=== PATIENT | female | born 1970 | race Caucasian/White ===

== ENCOUNTER 2019-10-23 18:07 | Emergency (ER) | payer BC ==
[2019-10-23] MEDS ORDERED: NS 0.9% 1000 ML** 1,000 ML IV ONE (18:44)
--- NOTE | 2019-10-23 18:45 | ED ---
Abdominal Pain/Female - HPI Summary HPI Summary: This pt is a 49 Y/O F presenting to [facility] with a CC of upper abdominal pain, localized to the R side, that has been intermittent since 10/18/2019. She states that the pain is rated a 7/10 in severity. She states that she eating anything causes the pain to hurt and is resolved by vomiting, She states that her stool and urination has been normal. She reports that she has had a decreased appetite and finally ate at 1330. If she does not vomit she states that she has pain for an hour and a half. The pain has begun radiating to her back today. She denies any fevers, chills, headaches, SOB, and CP. She states that belching alleviates her pain as well. She has no pertinent PMHx. She states that she has had no abdominal surgeries. She states that her LKMP was 2 weeks ago. - History of Current Complaint Chief Complaint: Cinthia Stated Complaint: UPPER ABD PAIN PER PT Time Seen by Provider: 10/23/19 18:14 Hx Obtained From: Patient ?: No Onset/Duration: Sudden Onset, Lasting Days - 5, Still Present Timing: Hours - 1.5 unless vomits Severity Initially: Moderate Severity Currently: Moderate Pain Intensity: 7 Pain Scale Used: 0-10 Numeric Location: Discrete At: RUQ Radiates: Yes Radiates to: Back - started today Aggravating Factor(s): Food Alleviating Factor(s): Vomiting Associated Signs and Symptoms: Positive: Negative - chills, headaches, sob, Back Pain, Nausea, Vomiting. Negative: Fever, Chest Pain, Urinary Symptoms, Diarrhea Allergies/Adverse Reactions: Allergies Allergy/AdvReac Type Severity Reaction Status Date / Time No Known Allergies Allergy Verified 10/23/19 18:11 PMH/Surg Hx/FS Hx/Imm Hx Previously Healthy: Yes Endocrine/Hematology History: Denies: Hx Diabetes Cardiovascular History: Denies: Hx Hypertension Respiratory History: Denies: Hx Asthma Infectious Disease History: No Infectious Disease History: Denies: Traveled Outside the [place] in Last 30 Days - Family History Known Family History: Positive: Diabetes, Other - colon CA - Social History Occupation: Employed Full-time Lives: With Family Alcohol Use: None Hx Substance Use: No Substance Use Type: Reports: None Hx Tobacco Use: No Smoking Status (MU): Never Smoked Tobacco Review of Systems Negative: Fever, Chills Negative: Chest Pain Negative: Shortness Of Breath Positive: Abdominal Pain - RUQ, Vomiting, Nausea. Negative: Diarrhea Genitourinary: Negative Negative: Headache All Other Systems Reviewed And Are Negative: Yes Physical Exam - Summary Physical Exam Summary: Constitutional: Well-developed, Well-nourished, Alert. (-) Distressed Skin: Warm, Dry HENT: Normocephalic; Atraumatic Eyes: Conjunctiva normal Neck: Musculoskeletal ROM normal neck. (-) JVD, (-) Stridor, (-) Tracheal deviation Cardio: Rhythm regular, rate normal, Heart sounds normal; Intact distal pulses; Radial pulses are 2+ and symmetric. (-) Murmur Pulmonary/Chest wall: Effort normal. (-) Respiratory distress, (-) Wheezes, (-) Rales Abd: Soft, Mild RUQ tenderness, negative murphys sign, (-) Distension, (-) Guarding, (-) Rebound Musculoskeletal: (-) Edema Lymph: (-) Cervical adenopathy Neuro: Alert, Oriented x3 Psych: Mood and affect Normal Triage Information Reviewed: Yes Vital Signs On Initial Exam: Initial Vitals Temp Pulse Resp BP Pulse Ox 98.1 F 79 16 143/92 99 10/23/19 18:08 10/23/19 18:08 10/23/19 18:08 10/23/19 18:08 10/23/19 18:08 Vital Signs Reviewed: Yes Procedures - Sedation Patient Received Moderate/Deep Sedation with Procedure: No Diagnostics - Vital Signs Vital Signs Temp Pulse Resp BP Pulse Ox 10/23/19 18:08 98.1 F 79 16 143/92 99 - Laboratory Result Diagrams: 10/23/19 18:51 10/23/19 18:51 Lab Statement: Any lab studies that have been ordered have been reviewed, and results considered in the medical decision making process. - Ultrasound Gallstone US Ultrasound Interpretation Completed By: Radiologist Summary of Ultrasound Findings: Gallstones. Dilated CBD with an obstructing stone identified distally. There is intrahepatic ductal dilatation as well. ED physician has reviewed this report. Re-Evaluation - Re-Evaluation First Eval Re-Evaluation Time: 20:27 Change: Unchanged Comment: Pt was informed of transfer and is agreeable. Abdominal Pain Fem Course/Dx - Course Course Of Treatment: Patient is here with right upper quadrant tenderness over the past week. Patient's had no fever. Patient does have right upper quadrant tenderness on exam. Patient had blood work performed which showed no leukocytosis. Patient has elevated LFTs, T bili, alkaline phosphatase. Patient has a normal lipase. Patient had an ultrasound performed which showed choledocholithiasis with a dilated CBD and intrahepatic biliary duct dilatation. Patient has no evidence of cholecystitis. Patient is given Zosyn empirically. GI was called and the recommended ERCP which cannot be done here. Patient is transferred to [facility]. - Diagnoses Provider Diagnoses: Choledocholithiasis - Provider Notifications Discussed Care Of Patient With: Malou Strickland Time Discussed With Above Provider: 20:28 Instructed by Provider To: Transfer Admit/Transition Orders Completed By ED Provider: Yes Discharge ED - Sign-Out/Discharge Documenting (check all that apply): Patient Departure - transfer [facility] - Discharge Plan Condition: Stable Disposition: TRANS HIGHER LVL OF CARE FAC Referrals: Maira Kuhn NP [Primary Care Provider] - - Billing Disposition and Condition Condition: STABLE Disposition: Trans Higher Lvl of Care Fac - Attestation Statements Document Initiated by Scribe: Yes Documenting Scribe: Raji Donato Provider For Whom Scribe is Documenting (Include Credential): Wai Diop MD Scribe Attestation: Raji Rodrigez, petered for Wai Diop MD on 10/23/19 at 2052. Scribe Documentation Reviewed: Yes Provider Attestation: The documentation as recorded by the Raji villalta accurately reflects the service I personally performed and the decisions made by Wai mello MD Status of Scribe Document: Viewed Consult Consult: CARMEL Govea, was consulted at 2000 recommends transferring the pt for an ERCP. CARMEL Murcia, accepts the pt to the floor of [facility] to preform the ERCP at 2023.
[2019-10-23 19:03] LABS: ABS Eosinophils 0.1 10^3/ul (0-0.6); ABS Lymphocytes 1.4 10^3/ul (1.0-4.8); ABS Monocytes 0.4 10^3/ul (0-0.8); ABS Neutrophils 2.8 10^3/ul (1.5-7.7); Eosinophil % 1.5 %; Hematocrit 38 % (35-47); Hemoglobin 13.3 g/dL (12.0-16.0); Lymphocyte % 29.9 %; Mean Corpuscular HGB Conc 35 g/dL (31-36); Mean Corpuscular Hemoglobin 30 pg (27-31); Mean Corpuscular Volume 86 fL (80-97); Mean Platelet Volume 8.2 fL (7.4-10.4); Platelet Count 348 10^3/uL (150-450); Red Blood Count 4.44 10^6 /uL (3.70-4.87); Red Cell Distribution Width 14 % (10-15); White Blood Count 4.8 10^3/uL (3.5-10.8)
[2019-10-23] MEDS ORDERED: Ketorolac INJ* 30 MG/ML 1 ML VIAL IV ONE (19:04)
[2019-10-23 19:19] LABS: ALT 372 U/L (7-52); AST 250 U/L (13-39); Albumin/Globulin Ratio 1.4 (1-3); Alkaline Phosphatase 277 U/L (34-104); Anion Gap 7 mmol/L (2-11); BUN/Creatinine Ratio 11.7 (8-20); Blood Urea Nitrogen 9 mg/dL (6-24); CO2 Carbon Dioxide 29 mmol/L (22-32); Calcium 8.9 mg/dL (8.6-10.3); Chloride 101 mmol/L (101-111); EGFR African American 96.4 (>60); EGFR Non-African American 79.7 (>60); Globulin 2.8 g/dL (2-4); Glucose 102 mg/dL (70-100); Potassium 3.6 mmol/L (3.5-5.0); Sodium 137 mmol/L (135-145); Total Protein 6.8 g/dL (6.4-8.9)
[2019-10-23 19:26] LABS: HCG Pregnancy < 0.60 mIU/mL
[2019-10-23] MEDS ORDERED: Piperacillin/Tazobac ADVAN(*) 3.375 GM in NS 0.9% 100 ML* 100 ML IVPB ONE (20:01)
[2019-10-23 20:16] VITALS: BP 128/75
== END 2019-10-23 21:47 | disposition short-term general hospital (02) ==
LOC: ED 18:07
DX: K80.50 Calculus of bile duct without cholangitis or cholecystitis without obstruction (principal); R10.11 Right upper quadrant pain; R11.2 Nausea with vomiting, unspecified
CPT/HCPCS: 36415; 76705; 80053; 83690; 84702; 85025; 96361; 96365; 96375; 99283; J1885; J2543

== ENCOUNTER 2019-11-22 10:51 | Inpatient (IN) | payer BC ==
--- NOTE | 2019-11-22 10:58 | ED ---
Abdominal Pain/Female - HPI Summary HPI Summary: 49 y/o F with hx gallstones presenting to [facility] c/o 05/13 epigastric and RUQ pain radiating into mid back. Was seen here 1 month ago, transferred to [facility], had 3 gallstones removed and ERCP done, did not have cholecystectomy done due to COVID19 pandemic, was d/c on 10/25. Patient has since had 5 flareups. She reports 3 flareups this past week. They start in the evening, usually mild 10/11. They worsen into the morning. Today her pain started at 0100 and has worsened since 0600. Patient reports nausea/vomiting and intermittent diarrhea for one week. She denies fever. Symptoms aggravated by nothing. Symptoms alleviated by nothing. Medications reviewed. - History of Current Complaint Chief Complaint: EDAbdPain Stated Complaint: GALLBLADDER ISSUE PER PT Time Seen by Provider: 11/22/19 10:57 Hx Obtained From: Patient Onset/Duration: Lasting Weeks - 1, Still Present Timing: Intermittent Episode Lasting Severity Currently: Severe Pain Intensity: 10 Pain Scale Used: 0-10 Numeric Location: Discrete At: RUQ, Epigastric Radiates: Yes Radiates to: Back - mid Aggravating Factor(s): Nothing Alleviating Factor(s): Nothing Associated Signs and Symptoms: Positive: Negative - fever, Nausea, Vomiting, Diarrhea Allergies/Adverse Reactions: Allergies Allergy/AdvReac Type Severity Reaction Status Date / Time No Known Allergies Allergy Verified 11/22/19 10:52 Home Medications: Home Medications Multivitamins/Minerals TAB* [Theragran/minerals TAB*] 1 tab PO DAILY 11/22/19 [ History Confirmed 11/22/19] Zinc 50 mg PO DAILY 11/22/19 [History Confirmed 11/22/19] PMH/Surg Hx/FS Hx/Imm Hx Endocrine/Hematology History: Denies: Hx Diabetes Cardiovascular History: Denies: Hx Hypertension Respiratory History: Denies: Hx Asthma GI History: Reports: Other GI Disorders - gallstones Infectious Disease History: No Infectious Disease History: Denies: Traveled Outside the [place] in Last 30 Days - Family History Known Family History: Positive: Diabetes, Other - colon CA - Social History Alcohol Use: None Hx Substance Use: No Substance Use Type: Reports: None Hx Tobacco Use: No Smoking Status (MU): Never Smoked Tobacco Review of Systems Negative: Fever Positive: Abdominal Pain, Vomiting, Diarrhea, Nausea All Other Systems Reviewed And Are Negative: Yes Physical Exam - Summary Physical Exam Summary: Constitutional: Well-developed, Well-nourished, Alert. (-) Distressed Skin: Warm, Dry HENT: Normocephalic; Atraumatic Eyes: Conjunctiva normal Neck: Musculoskeletal ROM normal neck. (-) JVD, (-) Stridor, (-) Nuchal rigidity Cardio: Rhythm regular, rate normal, Heart sounds normal; Intact distal pulses; Radial pulses are 2+ and symmetric. (-) Murmur Pulmonary/Chest wall: Effort normal. (-) Respiratory distress, (-) Wheezes, (-) Rales Abd: Soft, epigastric and RUQ tenderness, (-) Distension, (-) Guarding, (-) Rebound Musculoskeletal: (-) Edema Lymph: (-) Cervical adenopathy Neuro: Alert, Oriented x3 Psych: Mood and affect Normal Triage Information Reviewed: Yes Vital Signs On Initial Exam: Initial Vitals Temp Pulse Resp BP Pulse Ox 98.1 F 90 18 146/96 98 11/22/19 10:52 11/22/19 10:52 11/22/19 10:52 11/22/19 10:52 11/22/19 10:52 Vital Signs Reviewed: Yes Procedures - Sedation Patient Received Moderate/Deep Sedation with Procedure: No Diagnostics - Vital Signs Vital Signs Temp Pulse Resp BP Pulse Ox 11/22/19 10:52 98.1 F 90 18 146/96 98 - Laboratory Result Diagrams: 11/22/19 10:57 11/22/19 10:57 Lab Statement: Any lab studies that have been ordered have been reviewed, and results considered in the medical decision making process. - Ultrasound Abdomen Ultrasound Interpretation Completed By: Radiologist - IMPRESSION: 1. BILIARY DILATATION WITH A 0.7 CM DISTAL COMMON DUCT STONE. 2. CHOLELITHIASIS. ED physician has reviewed this imaging report. Re-Evaluation - Re-Evaluation First Eval Re-Evaluation Time: 13:02 - Transfer initiated Second Eval Re-Evaluation Time: 13:07 - Patient declines transfer Abdominal Pain Fem Course/Dx - Course Course Of Treatment: 49 y/o F w hx gallstones s/p ERCP p/w R sided abd pain. - check labs, RUQ US, pain control toradol. - labs w elevated LFTS, alk phos and tbili. US w 0.7 cm stone CBD, d/w GI who initially requested transfer however patient requesting to stay at [facility]. - Dr. Palma will see patient this afternoon - Diagnoses Provider Diagnoses: Common bile duct stone - Provider Notifications Discussed Care Of Patient With: Conner Palma - Recommends transfer given that patient had recent ERCP at [place]. 1308 Dr. Palma agrees to consult. 1316 Dr. Luevano accepts patient. Time Discussed With Above Provider: 12:58 - Critical Care Time Critical Care Statement: Critical care time is provided exclusive of any time spent performing procedures. Discharge ED - Sign-Out/Discharge Documenting (check all that apply): Patient Departure - Discharge Plan Condition: Stable Disposition: ADMITTED TO [facility] Referrals: Maira Kuhn NP [Primary Care Provider] - - Billing Disposition and Condition Condition: STABLE Disposition: Admitted to [facility] - Attestation Statements Document Initiated by Scribe: Yes Documenting Scribe: Jackeline Wagoner Provider For Whom Nick is Documenting (Include Credential): Romana Gonzalez MD Scribe Attestation: Jackeline Rodrigez, scribed for Romana Gonzalez MD on 11/22/19 at 1324. Scribe Documentation Reviewed: Yes Provider Attestation: The documentation as recorded by the Jackeline villalta accurately reflects the service I personally performed and the decisions made by Romana mello MD Status of Scribe Document: Viewed
--- OUTSIDE RECORDS SUMMARY | 2019-11-22 11:00 | XMS REPORT | Continuity of Care Document ---
:1970 Author Organization 0001 - [facility] Address [address] [place] [address] Phone Care Team Providers Name Role Phone NICKIE LI NP Unavailable Unavailable Allergies, Adverse Reactions, Alerts Substance Reaction Status No Known Allergies Active Medications Medication Instructions Dosage Effective Dates Status Comments (start - stop) Suprep Bowel Prep Kit take as directed for - Active 17.5 gram-3.13 colonoscopy gram-1.6 gram oral solution Problems Condition Effective Dates (start - stop) Clinical Status Encntr for pneumatic drum sander exam (general) (routine) w/o abn findings Encounter for screening mammogram for breast cancer Encounter for general adult medical examination without abnormal findings Encounter for screening for malignant neoplasm of colon Family history of colon cancer History of basal cell carcinoma Ceballos hemangioma Acrochordon Hemangioma of skin and subcutaneous - tissue Flank pain Mid back pain on right side Pain in thoracic spine - Basal cell carcinoma of skin of scalp - and neck Melanocytic nevi of left lower eyelid, - including canthus Encntr for general adult medical exam w/o abnormal findings Encounter for immunization History of hyperlipidemia Encntr for pneumatic drum sander exam (general) (routine) w/o abn findings Neoplasm of skin Facial scar Personal history of other malignant - neoplasm of skin Encounter for screening for other - disorder Neoplasm of skin History of basal cell carcinoma Disturbance of skin sensation Rash Tick bite of neck, initial encounter ^ Bitten or stung by nonvenomous insect and other nonvenomous arthropods, initial encounter Chronic intractable headache, unspecified headache type Hyperlipidemia, unspecified hyperlipidemia type Encntr for general adult medical exam w/o abnormal findings Chronic intractable headache, unspecified headache type Encounter for screening mammogram for breast cancer Body mass index (BMI) 36.0-36.9, adult - Flank pain Flu-like symptoms Encntr for general adult medical exam w/o abnormal findings Encounter for screening mammogram for breast cancer Myalgia BMI 36.0-36.9,adult Myalgia Basal cell carcinoma of skin of face Encounter for removal of sutures - Basal cell carcinoma of skin of other - parts of face Basal cell carcinoma of skin of face Basal cell carcinoma of skin of other - parts of face Neoplasm of skin Acrochordon Ceballos hemangioma Seborrheic keratosis Disturbance of skin sensation Skin neoplasm Other disturbances of skin sensation - Vertigo, benign paroxysmal, unspecified laterality Abnormal mammogram Inconclusive mammogram Hypercholesteremia Encntr for general adult medical exam w/o abnormal findings Other screening mammogram Skin lesion Wrist injury Pain in joint, forearm - Acdnt fall, same lvl, slip/trip/stumble - NOS Place of occurrence NEC - Examination, routine medical Screening mammogram NEC Pain in shoulder Screening exam for viral diseases Family history of cancer of gastrointestinal tract Influenza Vaccine - Vaccine against DTP - Mole Flank pain Abdominal Pain - Sciatica Abdominal Pain - Sciatica - Screening mammogram NEC Pending workup Procedures Procedure Date Procedure Unknown Results Test Name Date and Time Measure Units Reference Range Abnormal Flag Status Comments Unknown Encounters Encounter Practice Location Reason(s) Diagnoses Date Provider Providers Description For Visit Copied on Encounter 0001 - [facility] Primary [email or web address] 5 NICKIE. Jose [address] [place], [place], [address], [address]. Ryan tel:[phone] [place], [address], tel:[phone] 2019 - [employer] Primary Encntr for pneumatic drum sander meebee Fellows exam (general) 1-201 NICKIE. 54 33-57 (routine) w/o 9 [facility] abn [place], [place], Street, findingsEncount [address]. Ryan er for tel:[phone] [place], screening [phone], [place] mammogram for tel:[phone] breast [phone] cancerEncounter for general adult medical examination without abnormal findingsEncount er for screening for malignant neoplasm of colonFamily history of colon cancer 0001 - [facility] History of [employer]FONSO [employer] [employer], Dermatology basal cell 0-201 RACHEAL. 200 33-57 carcinomaCherry [address] [place] hemangiomaAcroc [place], [place], hordonHemangiom [address], Ryan a of skin and [place], [place], [place], subcutaneous [address]. [address], [place] tissue tel:+ tel:+ [phone] 0001 - S Primary Flank pain Feb- EMILY [facility] [employer], Care Fellows 9-201 [place]. 33-57 9 [address] [place], [place], Street, [address]. Ryan tel:[phone] [place], [phone], [place] tel:+ [phone] 0001 - S Primary Mid back pain Feb- EMILY [facility] [employer], Care Fellows on right 8- [place]. 33-57 sidePain in 9 54 [facility] thoracic spine [place], [place], Street, [address]. Ryan tel:[phone] [place], [address], [place] tel:+ [phone] 0001 - S Plastic Basal cell Jun- FEDCZUK [employer] [employer], Surgery carcinoma of 0-201 ANDREWS 33-57 skin of scalp 8 PETER. [facility] and 27 [facility], neckMelanocytic [place], [address]. [place], lower eyelid, tel:[phone], [place] including [address] tel:[phone] canthus [phone] 0001 - S Primary Encntr for Jun- RISING [employer] [employer], Care Fellows general adult 9- NICKIE. 54 33-57 medical exam 8 [facility] w/o abnormal [place], [place], Street, findingsEncount [address]. Ryan er for tel:[phone] [place], [place], immunizationHis [phone], [place] tory of tel:[phone] hyperlipidemiaE [phone] ncntr for pneumatic drum sander exam (general) (routine) w/o abn findings 0001 - [facility] Plastic [facility]- [facility], Surgery skinFacial ANDREWS 33-57 scarPersonal 8 PETER. [facility] history of [facility], other malignant [place], [address]. [place], skin tel:[phone], [place] [address] tel:[phone] 0001 - Lab Drop - Encounter for Sep-0 [facility], [facility] screening for RACHEAL. 200 33-57 other disorder 8 [facility], [place], [address], [place], [address]. [address], [place] tel:[phone] tel:[phone] 0001 - [facility] Neoplasm of Sep-0 [facility], Dermatology skinHistory of RACHEAL. 200 33-57 basal cell [address] [place] carcinomaDistur [place], [place], bance of skin [address], [place], [address]. [address], [place] tel:[phone] tel:[phone] 0001 - [facility] Walk-In RashTick bite Apr- [facility], Center of neck, 201 EDDI. 4417 33-57 Hilary initial 8 Hilary [place] encounter [facility], ^Bitten or Ryan Matias stung [place], nonvenomous [address]. [address], [place] insect and tel:[phone] tel:[phone] other [phone] nonvenomous arthropods, initial encounter 0001 - [facility] Primary Chronic Feb- [facility]ISING S Inc, Care Fellows intractable 9201 NICKIE. 54 33-57 headache, [address] , [place] unspecified [place], [place], headache [address]. Ryan typeHyperlipide tel:[phone] [place], [place], [address], [place] unspecified tel: hyperlipidemia [phone] type 0001 - [facility] Primary Encntr for [facility], Care Fellows general adult 1- NICKIE. 54 33-57 medical exam 8 [facility] w/o abnormal [place], [place], Street, findingsChronic [address]. [facility] tel:[phone] [place], headache, [address], [place] unspecified tel:[phone] headache [phone] typeEncounter for screening mammogram for breast cancerBody mass index (BMI) 36.0-36.9, adult 0001 - [facility] Primary Flank ELIAN [facility], Care Fellows painFlu-like 0 PABLO. 260 33-57 symptoms 7 Irwin Alexx [facility], [place], [place], Ryan [address]. [place], tel:[phone], [place] [address] tel: [phone] 0001 - [facility] Primary Encntr for ELIAN [facility], Care Fellows general adult PABLO. 260 33-57 medical exam 7 Irwin Alexx w/o abnormal Ryan Dodson [place], [place], [place] [address]. [place], screening tel:[phone], [place] [address] tel:60 breast [phone] cancerMyalgiaBM I 36.0-36.9,adult 0001 - [facility] Primary Myalgia ELIAN [facility], Care Fellows PABLO. 260 33-[address] [place], [place], Ryan [address]. [place], tel:[phone], [place] [address] tel:[phone] 0001 - [facility] Basal cell Fili- PAULA S Inc, Dermatology carcinoma of GENADIJ. 200 33-57 skin of [address] [place] [facility], for removal of [address], [place] [facility] [place], [place], [place], cell carcinoma [address]. [address], [place] of skin of tel:[phone] tel:+ other parts of [phone] face 0001 - [facility] Basal cell Fili-0 [employer], Dermatology carcinoma of 2-201 GENADIJ. 200 33-57 skin of [address] [place] faceBasal cell [place], [place], carcinoma of [address], Ryan skin of other [place], [place], [place], [place], parts of face [address]. [address], [place] tel:+ tel: [phone] 0001 - [facility] Neoplasm of May-2 [employer], Dermatology skin 6-201 GENADIJ. 200 33-[address] [facility], [place], [address], [place], [place], [place], [address]. [address], [place] tel:[phone] tel: [phone] 0001 - [facility] AcrochordonCher Mar-0 [employer], Dermatology ry 4-201 RACHEAL. 200 33-57 hemangiomaSebor [address] [place] rheic [place], Street, keratosisDistur [address], Ryan bance of skin [place], [place], [place], [place], sensationSkin [address]. [address], [place] neoplasmOther tel:+ tel:[phone] disturbances [place] [phone] skin sensation 0001 - [facility] Primary Vertigo, benign Silverio-2 CALLEO [facility], Care Fellows paroxysmal, 5-201 ISABELLA. [address] 33[address], [place], [place], Street, [address]. Ryan tel:[phone] [place], [address], [place] tel:+ [phone] 0001 - [facility] Primary Abnormal Dec-0 [facility], Care Fellows mammogram 3-201 ISABELLA. 116 N 33-57 [address], [place], [place], Street, [address]. Ryan tel:+[phone] [place], [address], [place] tel:[phone] 0001 - [facility] Primary Inconclusive Dec-0 [facility], Care Fellows mammogram 2-201 ISABELLA. [address] 33[address], [place], [place], Street, [address]. Ryan tel:[phone] [place], [address], [place] tel:+ [phone] 0001 - [facility] Primary Hypercholestere Nov-2 CALLEO S Inc, Care Fellows lenka 3- ISABELLA. 116 [address] 33[address], [place], [place], Street, [address]. Ryan tel:[phone] [place], [address], [place] tel: [phone] 0001 - [facility] Primary Encntr for Nov-2 CALLEO S Inc, Care Fellows general adult 0-201 ISABELLA. 116 [address] 33-[address], [place] w/o abnormal [place], [place], Street, findingsOther [address]. Ryan screening tel:[phone] [place], mammogramSkin [address], [place] lesion tel: [phone] 0001 - [facility] Walk-In Wrist Apr- LAYLA GARDNER. [facility], Center injuryPain in 4433 [place] 3[address] [place] joint, 5 [facility] forearmAcdnt [facility], [place], fall, same lvl, Rheumatology Ryan slip/trip/stumb , [place], [place], [place], [address]. [address], [place] occurrence NEC tel:+4 tel: [phone] 0001 - [facility] Primary Examination, SCHECTER S Inc, Care Fellows routine JADA. 33-57 medicalScreenin 4 4417 [facility] g mammogram [address] [facility], NECPain in [place], [place], Ryan shoulderScreeni [address]. [place], ng exam for tel:[phone], [place] viral [address] tel:[phone] diseasesFamily [phone] history of cancer of gastrointestina l tractInfluenza VaccineVaccine against DTPMole 0001 - [facility] Primary Silverio- MARTIN S Inc, Care Fellows JESSENIA. 54 33-57 [address] , [facility], Street, [place], [place], Ryan [address]. [place], tel:[phone], [place] [address] tel:[phone] 0001 - [facility] Primary Flank Mar-2 ALICIA S Inc, Care Fellows painAbdominal 3-201 KASEY. 54 33-57 PainSciaticaAbd 2 [place], [place], Street, [facility] HospitalSciatica [address]. Ryan tel:[phone] [place], [address], tel:[phone] 0001 - [facility] Primary Screening Aug-2 SALAZAR S Inc, Care Fellows mammogram NEC 2-200 JESSENIA. 54 33-57 6 [facility], Street, [place], [place], Ryan [address]. [place], tel:[phone], [address] tel:[phone] Family History Family Member Diagnosis Age At Onset Paternal aunt Diabetes mellitus Maternal grandmother Cancer, colon Maternal aunt Cancer, colon Paternal uncle Diabetes mellitus Family history of Cancer, unknown Immunizations Vaccine Date Status Comments Influenza, injectable, administered Source: New Immunization quadrivalent, preservative Record free, split virus Influenza, injectable, administered Source: New Immunization quadrivalent, preservative Record free, split virus Influenza, injectable, administered Source: New Immunization quadrivalent, preservative Record free, split virus 4618-4507 Influenza, injectable, split administered Source: New Immunization virus, preservative free, 3 Record years and older Afluria 2742-4366 Tdap administered Source: Source Unspecified Fluarix Quadrivalent Syringe administered Source: Source Unspecified flu (split) (3 yrs or older) administered Note: Abstracted:08/24 ; Source: New Immunization Record Payers Payer name Insurance type Covered constitution party ID Authorization(s) Rubén [id number] [facility] [id number] [facility] [id number] [place] He [id number] [facility] [id number] Count includes the [facility] [id number] Social History Type Description Quantity Date Captured Comments Alcohol Use Details Unknown Caffeine Use Details Unknown Tobacco Use Status Unknown Smoking Status Unknown Vital Signs Date / Height Weight BMI Pulse Blood Temperature Respiratory Body Head BMI Time: Rate Pressure Rate Surface Circumference percentile Area Unknown Chief Complaint And Reason For Visit No information Reason For Referral Reason For Referral Unknown Plan Of Care Date Type Action Status Referral Referred To: ordered ASA ROB MD [address] [place], [address] [phone] Ordered: Referrals: Gastroenterology. ASA ROB MD. Evaluate and treat Appointment date/timeframe: 08/02/2019 Referral Ordered: ordered U/S Retroperitoneal limited (Must state single Kidney or Aorta) Right kidney Appointment date/timeframe: 02/19/2019 Referral Ordered: ordered Plastic Surgery (related to Neoplasm of skin) Referral Ordered: ordered Referrals: Plastic Surgery. Evaluate and treat Referral Ordered: ordered DEEPALI PENA DC -Chiropractic Medicine (related to Chronic intractable headache, unspecified headache type) Referral Referred To: ordered DEEPALI PENA DC [address] [place], [address] [phone] Ordered: Referrals: Chiropractic Medicine. DEEPALI PENA DC. Evaluate and treat Appointment date/timeframe: 4 Weeks Referral Ordered: ordered MRI of brain w/o Contrast Appointment date/timeframe: 09/09/2017 Referral Ordered: ordered Spot Compression Mammogram Referral Ordered: ordered Referrals: Dermatology Referral Ordered: ordered Xray Wrist complete (Must choose side) Right Appointment date/timeframe: STAT Referral Referred To: ordered ASA ROB [address] [place], [address] [phone] Ordered: ASA ROB. Gastroenterology. Consult and treat. Referral Ordered: ordered . Dermatology. Consult and treat. Referral Ordered: ordered Mammogram, Screening, Bilateral, 2 Views Each Referral Ordered: ordered . Physical Therapy. Evaluate patient, develop plan and implement plan. Date Type Problem Goal Intervention Status Start Date Unknown History Of Present Illness Encounter Date Complaint History Of Present Illness No information Functional Status Encounter Date Functional Assessment Cognitive Assessment Unknown Medications Administered Medication Instructions Dosage Effective Dates (start - stop) Status Comments Drug Treatment Unknown Instructions Date Instruction Additional Information Pap done today, this office will Related to Encntr for pneumatic drum sander exam call with results (general) (routine) w/o abn findings Mammogram ordered Related to Encounter for screening mammogram for breast cancer Referral to GI Related to Encounter for screening for malignant neoplasm of colon Maintain normal body weight. Related to Encounter for general Consume a diet rich in fruits, adult medical examination without vegetables, and low-fat dairy abnormal findings products with a reduced content of saturated and total fat. Consume no more than 2400mg of sodium/day. Engage in regular aerobic physical activity such as brisk walking (at least 30 minutes per day, most days a week). Return in 6 months for full skin Related to History of basal cell exam. Please call sooner with new carcinoma or changing lesions. SUNSCREENS:-Use sunscreen products that block UVB and UVA. Products should be applied generously 15-30 minutes before sun exposure. -Face: You may prefer a product that is light and nongreasy. Examples for face: Neutrogena Ultra-Sheer 30, 55, 85, 100, or Neutrogena Sensitive Skin 60,Neutrogena Sheer Zinc 50, Blue Lizard Face 30, depending on expected exposure. -Use SPF 30-70 on the body and choose one for your expected activity and skin type, less expensive. Ex: NoAd 60 ([employer])-Avoid fragrances and natural plant ingredients, as these may cause a rash.-The safest products for general use and for babies contain ZINC OXIDE and/or TITANIUM DIOXIDE as the ONLY active ingredients. Examples: Banana Boat Kids or Banana Boat Baby SPF 50 (8 oz for about $7) , Neutrogena Pure & Free Baby Faces 60 or Sheer Zinc 50, Blue Lizard Sensitive or Baby, Neutrogena Sensitive Skin 60, Vanicream.-If using insect repellent, put sunscreen on first, rub in, then apply repellent over it. SKIN TAGS (Acrochordons): Soft, Related to Acrochordon fleshy bumps. They tend to occur mostly on neck, eyelids, armpits, and thighs. They may run in families. They can be removed if they become painful or irritated. CEBALLOS HEMANGIOMA: These are bright Related to Ceballos hemangioma red to purplish bumps made up of small blood vessels, occurring most frequently on the torso. They increase in number with age and are totally harmless, although occasionally very numerous. Rest when you can.Ice or heat Related to Mid back pain on right 15-20min per hour as side tolerated.Tylenol or Ibuprofen as needed for pain. Patient will be contacted by office for testing results. Patient will be contacted by office Related to Encntr for general adult for testing results. Maintain medical exam w/o abnormal findings healthy diet of fruits, vegetables, proteins, and healthy grains. Monitor portion sizes. Exercise for at least 30 min per day for 5 days a week, such as walking, biking, or swimming. Maintain adequate hydration. Call office with any questions/concerns. Patient will be contacted by office Related to Encntr for pneumatic drum sander exam for testing results. (general) (routine) w/o abn findings You will be scheduled to have an Related to Neoplasm of skin office surgery procedure Return in 5-6 months for skin Related to Neoplasm of skin exam.Referral to plastic surgery. POST-OP INSTRUCTIONS: Leave the original dressing on and keep it dry for 24 hours. Wash your hands thoroughly before changing your dressing. Remove the bandage and wipe off any old ointment and blood using a gauze or cotton ball with water. You may wash the surgical site gently with water (no soap). Before showering remove the bandage and apply a thick layer of petroleum jelly or Aquaphor over the site to protect it. Afterwards, wipe off the excess and using a Q-tip reapply a thin layer and follow with a fresh dressing. Use petrolatum from a tube, not a jar. Change the dressing every 24 hrs. Avoid actions which may stretch, pull, or otherwise traumatize the operative site. If you have over 1/4" of redness around the site, drainage, bleeding, etc. please call the office. On evenings and weekends please go to a S walk-in ([place] [phone], [place] [phone], [place] [phone], or [facility] ER. SUNSCREENS:-Use sunscreen products Related to History of basal cell that block UVB and UVA. Products carcinoma should be applied generously 15-30 minutes before sun exposure. -Face: You may prefer a product that is light and nongreasy. Examples for face: Neutrogena Ultra-Sheer 30, 55, or Neutrogena Sensitive Skin 60, Blue Lizard Face 30, depending on expected exposure. -Use SPF 30-70 on the body and choose one for your expected activity and skin type, less expensive.-Avoid fragrances and natural plant ingredients, as these may cause a rash.-The safest products for general use and for babies contain ZINC OXIDE and/or TITANIUM DIOXIDE as the ONLY active ingredients. Examples: Banana Boat Kids or Banana Boat Baby SPF 50 (8 oz for about $7) , Neutrogena Pure & Free Baby Faces 60, Blue Lizard Sensitive or Baby, Neutrogena Sensitive Skin 60, Vanicream. Pt declined pt plan, discussed the Related to Rash following: Tick bite, CDC recommends post exposure prophylaxis of tick bite with Doxycycline if tick has been attached more than 36 hours. Pt requests antibiotic, Take antibiotic dose as prescribed with large glass of water. Discussed s/s of lyme disease, (large red rash that develops into bullseye appearance with central clearing, high fever, joint aches) follow up with primary care provider if these develop or any questions or concerns. Reviewed lab work. Increase Related to Hyperlipidemia, exercise as tolerated at least 40 unspecified hyperlipidemia type min a day, 3-4 days a week. Recommend diet that emphasizes intake of fruits, vegetables and whole grains; includes low fat dairy, poultry, fish, legumes, nontropical vegetable oils and nuts; and limits intake of sweets, sugar sweetened beverages and red meats. Reduce saturated fats. Reviewed MRI, Will refer to Related to Chronic intractable Chiropractor for treatment of headache, unspecified headache type chronic headaches. Complete mammogram Related to Encounter for screening mammogram for breast cancer Complete MRI of head. Related to Chronic intractable headache, unspecified headache type start tamiflu today, increase rest Related to Flu-like symptoms and fluid intake. Tylenol or motrin as needed for fever/discomfort. Urine testing done in office today Related to Flank pain was normal. normal exam Related to Encntr for general adult medical exam w/o abnormal findings There is no formal lab testing Related to Myalgia approved to diagnose non respiratory mold exposure symptoms and mold exposure is unlikely to cause this particular complaint. Will order routine lab work up and contact you with results. Follow-up in 4-5 months with one of Related to Basal cell carcinoma of our physician's assistants skin of face STERI-STRIPS: These are tapes that do not need to be removed for one to 2 weeks. If they get wet simply blot them dry and leave them on until they are peeling off on their at the ends. They will help support the wound edges well the deep layer heals further. In 10 days you may loosen them with alcohol or baby oil and gently peel them off. BASAL CELL CARCINOMA: Most common type of skin cancer, tends to grow larger and deeper slowly, destroying normal tissue in its path. Metastasis is rare - only if they get very large. The earliest sign may be a spot or bump that bleeds easily and repeatedly. It can look like a bump, flat red spot, or even a pale thick scar-like area which gradually gets bigger and sometimes bleeds for no reason. See www.skincancer.org for more information. SUNSCREENS: Use sunscreen products that block UVB and UVA. Products should be applied generously 15-30 minutes before sun exposure. Face: you may prefer a product that is light and nongreasy, SPF 30-85 depending on the expected exposure. Examples: Neutrogena Ultra-Sheer, Aveeno. Use SPF 30-70 on the body and choose one for your expected activity and skin type. Avoid fragrances and natural plant ingredients, as these may cause a rash. The safest products for general use and for babies contain ZINC OXIDE and/or TITANIUM DIOXIDE as the ONLY active ingredients. Examples: Banana Boat Kids or Banana Boat Baby SPF 50 ( 8 oz for about $7) , Neutrogena Pure& Free Baby Faces, Aveeno Natural SPF 50. Followup in 7 days. POST-OP Related to Basal cell carcinoma of INSTRUCTIONS: Leave the original skin of face dressing on and keep it dry for 24 hours. WASH YOUR HANDS THOUROUGHLY BEFORE CHANGING YOUR DRESSING. Remove the bandage and wipe off any old ointment and blood using a gauze or cotton ball and clean tap water. Before showering remove the bandage and apply a thick layer of petroleum jelly (petrolatum) over the site to protect it. Afterward wipe off the excess , and using a Q-tip reapply a thin layer of ointment and apply a fresh bandage. Use petrolatum or Aquaphor Healing Ointment from a tube, not a jar. Change the dressing every 12-24 hrs. Avoid actions which may injure the site or get it dirty. Your pathology lab results will be discussed at your followup appointment or called to you by phone if you do not have stitches. Follow-up in one week POST-OP Related to Neoplasm of skin INSTRUCTIONS: Leave the original dressing on and keep it dry for 24 hours. WASH YOUR HANDS THOUROUGHLY BEFORE CHANGING YOUR DRESSING. Remove the bandage and wipe off any old ointment and blood using a gauze or cotton ball and clean tap water. Before showering remove the bandage and apply a thick layer of petroleum jelly (petrolatum) over the site to protect it. Afterward wipe off the excess , and using a Q-tip reapply a thin layer of ointment and apply a fresh bandage. Use petrolatum or Aquaphor Healing Ointment from a tube, not a jar. Change the dressing every 12-24 hrs. Avoid actions which may injure the site or get it dirty. Your pathology lab results will be discussed at your followup appointment or called to you by phone if you do not have stitches. Return for 1 hour surgical visit Related to Skin neoplasm with Dr. Green. PRE-OP INSTRUCTIONS: Take a shower prior to surgery so that you can keep the site dry for 24 hours afterward. Consider having someone bring you. You will need to change bandages on the surgical site once or twice a day, and to return for removal of stitches in 1-2 weeks. Please arrive 5 minutes prior to your scheduled procedure time. If you must cancel your appointment kindly give us 48 hours notice. Follow-up for yearly skin exams. Please call sooner with new or changing lesions. SKIN TAGS (Acrochordons): Soft, Related to Acrochordon fleshy bumps. They tend to occur mostly on neck, eyelids, armpits, and thighs. They may run in families. They can be removed if they become painful or irritated. CRYOSURGERY SITE CARE: Expect swelling, redness, and possible formation of a water blister at the site treated with liquid nitrogen. Try not to break the blister, and if it is large and tense you may wipe the top of the with alcohol and puncture the side using a sterile pin to make a tiny hole. Gently pressing down on the blister, you can push the fluid out until it collapses, then cover it with a bandage to protect it from trauma. It can be drained again if it refills. Most sites will not form big blisters, and you can gently wash them with soap and water. A dressing would be needed only if the blister roof comes off and leaves a raw base. In that case use Aquaphor ointment or White Petrolatum under a Band-Aid or gauze for comfort, or just leave it open to the air and let it dry up. Most frozen sites form a dry scab within 7-10 days - do not remove it, since the new healthy skin will heal in under it and it will peel off when it is ready. CEBALLOS HEMANGIOMA: These are bright Related to Ceballos hemangioma red to purplish bumps made up of small blood vessels, occuring most frequently on the torso. They increase in number with age and are totally harmless, although occasionally very numerous. SEBORRHEIC KERATOSIS: Benign, "Old Related to Seborrheic keratosis age spots" that are raised, slightly oily-feeling with a variably crusty or bumpy surface. Most are brown in color, but they may be any color: flesh-colored, edwards, yellowish, brown, even black. They have a raised, "stuck-on" appearance and their surface texture is different from the skin around them. If they itch severely and often, or if there is pain, bleeding, noticeable enlargement, or other problems with them they may need treatment. They are sometimes hard to tell apart from abnormal moles or skin cancers, so they should be checked. Take meclazine as needed for Related to Vertigo, benign dizziness. Continue to take paroxysmal, unspecified laterality ibuprofen as needed for headache. Drink plenty of water to prevent dehydration. If headache/dizziness worsens call office. follow up with eye doctor for eye check as you may be straining your eyes causing a slight headache. Bloodwork ordered. will call you Related to Encntr for general adult with the results and we will fax medical exam w/o abnormal findings health screening form. no concerns at this time. mammogram ordered and referral to dermatology sent. follow up with CAD DEVELOPER for PAP smear. educated on healthy diet and exercise. follow up as needed. Referral sent to dermatology. Related to Skin lesion follow up as needed mammogram ordered. will call you Related to Other screening mammogram with the results. Preliminary results of x-ray showed Related to Wrist injury no fracture or dislocation,Follow up with Occ. Med tomorrow as to return to work- paper givenAvoid heavy lifting or straining. Apply Ice alternating with heat, and use otc NSAIDs such as naproxen or Ibuprofen as needed.Followup with your primary physician in 5-7 days for recheck, sooner if new or worsening symptoms occur. Thank you for choosing the [facility]. We hope that you will be feeling better soon.Any condition can change and some diseases may worsen despite proper treatment. Other problems may begin with vague or unusual symptoms and only over time will the problem become more clear, making it possible to arrive at the correct diagnosis. Your visit today is not a substitute for, or an effort to provide complete medical care. In most cases, you should let your primary care doctor check you again. Tell your doctor about any new or lasting problems. If you do not have a primary care provider, you have been given a list today of local providers who are accepting new patients. All x-rays are interpreted by a radiologist, usually within 48 hours. If there is any important difference between the radiologist's interpretation and what you were told today by the provider, you will be notified. If you had cultures done today, the results will be available in 72 hours, depending on the specimen. Influenza vaccine today in the Related to Influenza Vaccine office. Tdap vaccine today in the office. Related to Vaccine against DTP Referral to Gastroenterology. Related to Family history of cancer of gastrointestinal tract Blood work ordered, pending results. Related to Screening exam for viral diseases Continue with ibuprofen as needed Related to Pain in shoulder for pain. Referral to physical therapy. Mammogram ordered, pending results. Related to Screening mammogram NEC
[2019-11-22] MEDS ORDERED: Ondansetron INJ* 2 MG/ML VIAL IV ONE (11:02)
[2019-11-22] MEDS ORDERED: Ketorolac INJ* 30 MG/ML 1 ML VIAL IV ONE (11:02)
[2019-11-22] MEDS ORDERED: NS 0.9% 1000 ML** 1,000 ML IV ONE (11:02)
[2019-11-22 11:45] LABS: ABS Lymphocytes 0.5 10^3/ul (1.0-4.8); ABS Monocytes 0.4 10^3/ul (0-0.8); ABS Neutrophils 6.9 10^3/ul (1.5-7.7); Eosinophil % 0.1 %; Hematocrit 41 % (35-47); Hemoglobin 13.7 g/dL (12.0-16.0); Lymphocyte % 6.5 %; Mean Corpuscular HGB Conc 33 g/dL (31-36); Mean Corpuscular Hemoglobin 29 pg (27-31); Mean Corpuscular Volume 87 fL (80-97); Mean Platelet Volume 8.4 fL (7.4-10.4); Platelet Count 331 10^3/uL (150-450); Red Blood Count 4.71 10^6 /uL (3.70-4.87); Red Cell Distribution Width 14 % (10-15); White Blood Count 7.9 10^3/uL (3.5-10.8)
[2019-11-22 12:06] LABS: ALT 181 U/L (7-52); AST 314 U/L (13-39); Albumin 4.1 g/dL (3.2-5.2); Albumin/Globulin Ratio 1.3 (1-3); Alkaline Phosphatase 118 U/L (34-104); Anion Gap 7 mmol/L (2-11); BUN/Creatinine Ratio 8.7 (8-20); Blood Urea Nitrogen 6 mg/dL (6-24); CO2 Carbon Dioxide 29 mmol/L (22-32); Calcium 9.5 mg/dL (8.6-10.3); Chloride 102 mmol/L (101-111); EGFR African American 109.4 (>60); EGFR Non-African American 90.4 (>60); Globulin 3.1 g/dL (2-4); Glucose 99 mg/dL (70-100); Potassium 3.5 mmol/L (3.5-5.0); Sodium 138 mmol/L (135-145); Total Protein 7.2 g/dL (6.4-8.9)
[2019-11-22 12:12] LABS: HCG Pregnancy < 0.60 mIU/mL
[2019-11-22] MEDS ORDERED: Ondansetron INJ* 2 MG/ML VIAL IV PRN (14:10)
[2019-11-22] MEDS: NS 0.9% 1000 ML** 1,000 ML IV SCH (16:42)
--- NOTE | 2019-11-22 17:43 | HP ---
HISTORY AND PHYSICAL: DATE OF ADMISSION: 11/22/19 PRIMARY CARE PROVIDER: Isis Watts [facility]. ATTENDING PHYSICIAN WHILE IN THE HOSPITAL: Dr. Karen Luevano* (dictated by, Jeannie Santana, DEANA). CHIEF COMPLAINT: Right upper quadrant abdominal pain. HISTORY OF PRESENT ILLNESS: Ms. Khan is a 49-year-old female with a past medical history significant for gallstones, recent diagnosis of right lung nodule, and history of basal cell carcinoma who presented to the emergency room with complaints of sharp right upper quadrant abdominal pain. The patient reports that approximately 3 to 4 weeks ago she was diagnosed with gallstones in the common bile duct, she had an ERCP done at [facility]. She reports at that time she had the stones removed and they widened this common bile duct. She reports that approximately 2 weeks after her ERCP, she started having episodes of severe right upper quadrant pain. She reports that she used hot showers and warm compresses at home with relief, but over the past week she has had 3 episodes and the hot showers and warm compresses are no longer relieving her pain. Due to this pain. she presented to the emergency room for further evaluation. The patient reports that she has sharp right upper quadrant abdominal pain, associated bloating with nausea and vomiting. She denies any recent fevers or unintended weight loss, chest pain, or edema. No cough, hemoptysis, or shortness of breath. She denies any gross hematuria, dysuria, or focal weakness. No visual complaints, dysphagia, arthralgias, myalgias, rashes, lesions, open sores, psychosis, or anxiety. While in the emergency room, she had routine lab work drawn. She was found to have elevated liver functions with a total bilirubin of 1.50, ASTs were 314, ALTs were 181, and alkaline phosphatase is 118. She was afebrile. She had an ultrasound of her gallbladder that showed a gallstone in her common bile duct at 0.7 cm and the distal common bile duct stone and cholelithiasis. Due to these findings, Hospitalist Medicine was asked to see and evaluate the patient for admission. PAST MEDICAL HISTORY: Significant for: 1. Cholelithiasis. 2. Right lung nodule, recent incidental finding. 3. History of basal cell carcinoma. PAST SURGICAL HISTORY: 1. ERCP. 2. Breast augmentation. 3. Dental implants. 4. Basal cell carcinoma removed from her skin. HOME MEDICATIONS: Include: 1. Zinc 1 tablet p.o. daily. 2. Multivitamin 1 tablet p.o. daily. ALLERGIES: No known drug allergies FAMILY HISTORY: The patient is estranged from her family and does not know her parents' medical history, does know her maternal grandparents did have colon cancer. SOCIAL HISTORY: She denies any tobacco, alcohol, or illicit drug use. She is . She lives with her . Surrogate decision maker in the event she is unable to make her own decisions is her . She is a full code. REVIEW OF SYSTEMS: A 14-point review of systems was completed. All pertinent positives were mentioned in the HPI. The patient does complain of abdominal pain, intermittent diarrhea, nausea, and vomiting. PHYSICAL EXAMINATION GENERAL: At this time, Ms. Khan is 49-year-old female. She is alert and oriented, resting on the stretcher in the emergency room. She is in no acute distress. VITAL SIGNS: Blood pressure 128/83, heart rate was 86, respirations 18, O2 saturation 99%, temperature is 98.0. HEENT: Head is atraumatic, normocephalic. Eyes: EOMs are intact. Sclerae anicteric, not pale. Oral mucosa is moist. NECK: Supple. LUNGS: Clear to auscultation bilaterally. No wheezes, rales, or rhonchi. HEART: S1 and S2. Regular rate and rhythm. No murmurs, rubs, or gallops. ABDOMEN: Soft. Nontender at this time to palpation. Bowel sounds are active x4. EXTREMITIES: She is able to move all extremities. No clubbing or cyanosis. NEUROLOGIC: She is awake, alert, and oriented x3. Speech is clear. Thought process is intact. SKIN: Intact. DIAGNOSTIC STUDIES/LAB DATA: WBCs are 7.9, RBC 4.71, hemoglobin 13.7, hematocrit 41, platelet count is 331. Sodium 138, potassium 3.5, chloride 102, carbon dioxide is 29, anion gap is 7, BUN is 6, creatinine 0.69, glucose is 99, calcium 9.5. Total bilirubin 1.50, ASTs were 314, ALTs were 181, alkaline phosphatase was 118. Lipase was less than 10. Beta hCG was less than 0.60. She had an ultrasound of her gallbladder, radiologist's impression: Biliary dilation with a 0.7 cm distal common bile duct stone, cholelithiasis. ASSESSMENT AND PLAN: Ms. Khan is a 49-year-old female with past medical history significant for gallstones with a recent ERCP who presented to the emergency room with right upper quadrant abdominal pain. She will be admitted for: 1. Abdominal pain. I suspect this is related to choledocholithiasis with likely an obstructing common bile duct stone. She is noted to have elevated liver function, I again suspect this is related to the blocking common bile duct stone. I have talked to Dr. Palma from GI service, who will see the patient in consultation. I will get make her n.p.o., she will be on IV fluids. We will give her pain medicined as needed for pain control. I have also consulted Dr. Broussard from Surgery, who will also see the patient in consultation. 2. Elevated Liver functions. Suspect this is related to the stone that is blocking the common bile duct. Will continue to monitor and repeat CMP in the AM. Will likely need an ERCP. Again GI has been consulted. 3. FEN. She will be n.p.o. 4. Code Status: She is a full code. 5. DVT prophylaxis. I will place her on SCDs as the patient is likely having pending surgery. TIME SPENT: Time spent on this admission was 60 minutes, greater than half the time was spent at the bedside reviewing events leading thus far to her hospitalization, performing physical exam, and reviewing my plan of care. I have discussed this with my attending, Dr. Karen Luevano; she is in agreement with my plan. JEANNIE SANTANA, MANAGER LEGAL [id number]/[facility] #: [id number] OSBALDO
--- NOTE | 2019-11-22 18:32 | CONSULT ---
Consult Consult: Full note to follow. 49 yo F s/p ERCP at [facility] end on October after presenting to ED at [facility] with RUQ abd pain and found to have CBD stone. She has had recurrent episodes of pain starting about 2 weeks later, often in the middle of the night with associated N /V. Recent episode 1-2 AM prompting her to come to the ED. She noted improvement with Toradol. LFTs noted to be elevated and she is admitted to Hospitalist service. Surgical consult requested for cholecystectomy. Pt notes she had surgical consultation at [facility] but advised against surgery due to COVID-19 Pandemic. Vital Signs Temp 98.0 F 11/22/19 15:38 Pulse 86 11/22/19 15:38 Resp 18 11/22/19 15:58 BP 128/83 11/22/19 15:38 Pulse Ox 99 11/22/19 15:38 Gen: NAD Abd: soft; nontender RUQ; no King sx. Intake & Output 11/21/19 11/22/19 11/22/19 18:59 06:59 18:59 Intake Total 1000 Output Total 100 Balance 900 Weight 160 lb Intake: IV Fluids 1000 Output: Urine 100 Other: Estimated Void Medium Laboratory Results - last 24 hr 11/22/19 11/22/19 10:57 10:57 WBC 7.9 RBC 4.71 Hgb 13.7 Hct 41 MCV 87 MCH 29 MCHC 33 RDW 14 Plt Count 331 MPV 8.4 Neut % (Auto) 87.9 Lymph % (Auto) 6.5 Candler % (Auto) 5.4 Eos % (Auto) 0.1 Baso % (Auto) 0.1 Absolute Neuts (auto) 6.9 Absolute Lymphs (auto) 0.5 L Absolute Monos (auto) 0.4 Absolute Eos (auto) 0.0 Absolute Basos (auto) 0.0 Absolute Nucleated RBC 0.0 Nucleated RBC % 0.0 Sodium 138 Potassium 3.5 Chloride 102 Carbon Dioxide 29 Anion Gap 7 BUN 6 Creatinine 0.69 Est GFR ( Amer) 109.4 Est GFR (Non-Af Amer) 90.4 BUN/Creatinine Ratio 8.7 Glucose 99 Calcium 9.5 Total Bilirubin 1.50 H AST 314 H ALT 181 H Alkaline Phosphatase 118 H Total Protein 7.2 Albumin 4.1 Globulin 3.1 Albumin/Globulin Ratio 1.3 Lipase < 10 L Beta HCG, Quant < 0.60 A/P: Cholelithiasis/choledocholithisis s/p ERCP. Likely passing additional stones and will continue to have issues until cholecystectomy. Will await input from Dr. Palma prior to making surgical plan, but believe she is best served with christy price this admission.
[2019-11-22] MEDS: Ketorolac INJ* 15 MG/ML 1 ML VIAL IV PUSH PRN (18:51)
--- NOTE | 2019-11-22 18:57 | CONS ---
CC: Dr. Conner Palma; Maira Kuhn NP at [facility] SURGICAL CONSULT NOTE: DATE OF CONSULT: 11/22/19 ATTENDING SURGEON: Dr. Indra Broussard. CHIEF COMPLAINT: Common bile duct stone. HISTORY OF PRESENT ILLNESS: This is a generally healthy 49-year-old female who a little over month a go was experiencing upper abdominal discomfort with GI symptoms. She was to be scheduled for upper an d lower endoscopy, but that never transpired. She presented to the ED on 10/23/19 and ultimately was transferred to [facility] for common bile duct stones. She underwent ERCP with sphincter otomy and removal of stones. They deferred cholecystectomy at the time because of the COVID crisis. She states that since that time she has had 5 flareups, all typically short lasting episodes of mid epigastric and right upper quadrant pain with associated nausea and/or vomiting. She was awakened ar ound 1 a.m. last night with what ultimately zachary to a level of 10/10 pain with associated nausea, vom iting. She presented to the ED. She did not have any association with food intake. She has had some intermittent diarrhea as well as constipation. She denies fever or chills. At the present time, bret amador is pain free and without nausea. There is a questionable history of family history of gallbladder disease. She denies any significant change in the color of urine or stools. PAST MEDICAL HISTORY: No significant past or current active medical problems other than as noted in the HPI. PAST SURGICAL HISTORY: Previous surgeries include bilateral breast augmentation and subsequent impla nt change x2. She has had a couple of basal cell skin cancers removed. She does report significant postoperative nausea and vomiting, but does not tolerate scopolamine patch as well secondary to FITNESS SERVICES MANAGER s teetee effects. CURRENT MEDICATIONS: She takes no prescription medications. She does take a multivitamin and zinc s upplement. DRUG ALLERGIES: None known. FAMILY HISTORY: No problems that she is aware of in terms of anesthesia problems, bleeding or clotti ng disorders. SOCIAL HISTORY: The patient is . 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 She denies use of tobacco, drinks alcohol rarely and denies o ther recreational drug use. REVIEW OF SYSTEMS: General: No recent constitutional symptoms or acute illnesses other than describ ed in the HPI. HEENT: No problems reported. Cardiovascular: No chest pain, palpitations, or histor y of heart murmur. Respiratory: No history of asthma, chronic cough or shortness of breath. GI: A s above per HPI. No suspect lower GI symptoms. : No problems reported. CLINIC CLERK: She is up-to-date within the past year for both breast and pelvic exams including mammogram and Pap smear, all reported ly normal. Endocrine: No diabetes or thyroid dysfunction. PHYSICAL EXAM: Height 5 feet, weight 160 pounds, temperature 98, blood pressure 128/83, pulse 86, re spirations 18, room air saturation 99%. General: Well- nourished, well-developed female, in no acut e distress. Skin: Warm and dry. No suspicious rashes or lesions. HEENT: Pupils are equal, round, and reactive. EOMs intact. No conjunctival pallor or scleral icterus. Oropharynx: Teeth in good repair. No intraoral lesions. Neck: No lymphadenopathy, thyromegaly, or masses. Heart: Regular ra te and rhythm. No murmur appreciated. Lungs: Clear to auscultation. No rales or wheezes. Breasts : Not examined. Abdomen: Soft with very minimal tenderness to palpation in the right upper quadran t and mid epigastrium. Negative King's sign. Remainder of the abdomen is soft, nontender and with out palpable masses or organomegaly. Genitalia and Rectal: Not done. Back: No spinous process or C VA tenderness. Extremities: No edema. Neurological: Grossly intact. DIAGNOSTIC STUDIES/LAB DATA: Of note, white blood cell count 7900 with normal differential, hemoglob in 13.7. Total bilirubin elevated at 1.5, AST 314, ALT 181, alkaline phosphatase 118. Most of these were also elevated on her ED visit from 10/23/19. Her lytes, BUN and creatinine as well as lipase w ere all normal. Beta hCG is less than 0.6. Ultrasound done today confirms gallstones as well as what appears to be a 0.7 cm common bile duct sto ne in the distal common bile duct. Intrahepatic ducts are also dilated. IMPRESSION: Choledocholithiasis. PLAN: The patient is admitted to the medical service. She will be seen by Dr. Palma for Gastroenterology with consideration for repeat ERCP. We would anticipate li amadeo cholecystectomy during this admission once the duct has been cleared. DEN TOMPKINS [id number]/[facility] #: [id number]
--- NOTE | 2019-11-22 19:31 | CONS ---
GASTROENTEROLOGY CONSULT: DATE: 11/22/19 CONSULTING PHYSICIANS: Romana Gonzalez, emergency room; Indra Broussard, General Surgery.* REASON FOR CONSULTATION: Upper abdominal pain, elevated LFTs, and ultrasound showing common bile duct stone. 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 It was expected she would do well. About a week ago, she began developing recurring pain. This morning, it was severe and she came to the emergency room and received Toradol On exam, she appears well, afebrile, with otherwise normal vitals. Labs show bilirubin 1.5, ALT 181, alkaline phosphatase 118. Repeat ultrasound shows dilated common duct and a 7-mm stone. She believes her father had gallbladder disease. PAST MEDICAL HISTORY: 1. Basal cell cancers. 2. Breast augmentation. MEDICATIONS: At home - multivitamin and zinc. ALLERGIES: None known to drugs. REVIEW OF SYSTEMS: No history of bleeding disorder, cardiac, pulmonary, chronic hepatic, or renal disease. She has had no prior abdominal surgery. She has 2 children via vaginal , twins, with no particular problem. She states she is very sensitive to medication and had her ERCP with moderate sedation. EXAM: She is a tanned, middle-aged woman, in no overt distress appearing younger than stated age. She is anicteric. HEENT exam is unremarkable. Her lungs are clear and heart sounds are regular. Abdomen is symmetric with normal bowel sounds, soft and with some minimal epigastric tenderness. Extremities show no edema. Neurologic is nonfocal with normal orientation, cranial nerves, movement of all 4 extremities. LABS: Hemoglobin 13.7, hematocrit 41, MCV 87, platelets 331. Creatinine 0.69, BUN 6, calcium 9.5. Albumin 4.1. Lipase less than 10. IMPRESSION: Biliary colic 1 month after ERCP and sphincterotomy where stones were seen and removed. Her current symptoms are consistent with the prior biliary colic and with the elevated LFTs, the ultrasound findings are validated and another ERCP will be done. There was a detailed discussion of possible origins of this and options as to handling persistent stone disease which presents challenges above an initial baselind exam - assisted by a diagram. [id number]/[facility] #: [id number] [facility] MED[facility] CENTERLeonie
[2019-11-23] MEDS: NS 0.9% 1000 ML** 1,000 ML IV SCH (02:46)
[2019-11-23] MEDS: Ketorolac INJ* 15 MG/ML 1 ML VIAL IV PUSH PRN ×3 (02:49→17:24)
[2019-11-23 03:02] LABS: Urine Appearance Clear; Urine Bilirubin Negative (Negative); Urine Blood Negative (Negative); Urine Color Yellow; Urine Glucose Negative (Negative); Urine Ketones Negative (Negative); Urine Nitrite Negative (Negative); Urine Protein Negative (Negative); Urine Specific Gravity 1.012 (1.010-1.030); Urine Urobilinogen Negative (Negative)
[2019-11-23 07:26] LABS: ABS Eosinophils 0.1 10^3/ul (0-0.6); ABS Lymphocytes 1.8 10^3/ul (1.0-4.8); ABS Monocytes 0.3 10^3/ul (0-0.8); ABS Neutrophils 1.9 10^3/ul (1.5-7.7); Eosinophil % 1.5 %; Hematocrit 33 % (35-47); Hemoglobin 11.4 g/dL (12.0-16.0); Lymphocyte % 43.8 %; Mean Corpuscular HGB Conc 35 g/dL (31-36); Mean Corpuscular Hemoglobin 30 pg (27-31); Mean Corpuscular Volume 87 fL (80-97); Mean Platelet Volume 8.3 fL (7.4-10.4); Nucleated Red Blood Cells % 0.1; Platelet Count 248 10^3/uL (150-450); Red Blood Count 3.78 10^6 /uL (3.70-4.87); Red Cell Distribution Width 14 % (10-15); White Blood Count 4.1 10^3/uL (3.5-10.8)
[2019-11-23 07:36] LABS: INR 1.08 (0.82-1.09)
[2019-11-23 07:37] LABS: Albumin 3.2 g/dL (3.2-5.2); Albumin/Globulin Ratio 1.3 (1-3); BUN/Creatinine Ratio 14.1 (8-20); Calcium 8.2 mg/dL (8.6-10.3); EGFR African American 119.3 (>60); EGFR Non-African American 98.6 (>60); Globulin 2.4 g/dL (2-4); Potassium 3.7 mmol/L (3.5-5.0); Total Bilirubin 1.7 mg/dL (0.2-1.0); Total Protein 5.6 g/dL (6.4-8.9)
--- NOTE | 2019-11-23 08:53 | PN ---
Progress Note - Progress Note Date of Service: 11/23/19 Note: Anticipating ERCP later today. D/w pt that, provided no issues follow, christy price will be scheduled for 11/23. Likely could discharge after that. She is in agreement. Keep NPO after MN.
[2019-11-23] MEDS ORDERED: Buffered Lidocaine 1% SYRIN* 1 ML/SYRINGE INTRADERM ONE ×2 (11:26→11:46)
[2019-11-23] MEDS ORDERED: Dexamethasone IV* 4 MG/ML 1 ML (4 MG) ONE (11:46)
[2019-11-23] MEDS ORDERED: Famotidine IV* 10 MG/ML 2 ML (20 mg) ONE (11:46)
[2019-11-23] MEDS ORDERED: Lidocaine 2% PF * 5 ML VIAL ONE (12:29)
[2019-11-23] MEDS ORDERED: Propofol* 500 MG/50 ML BTL ONE (12:29)
[2019-11-23] MEDS ORDERED: Propofol* 10 MG/ML 20 ML BTL ONE ×3 (12:29→14:08)
[2019-11-23] MEDS ORDERED: fentaNYL* 50 MCG/ML 5 ML VIAL (250 MCG VIAL) ONE (12:30)
[2019-11-23] MEDS ORDERED: Succinylcholine* 20 MG/ML 10 ML VIAL ONE (12:33)
[2019-11-23] MEDS ORDERED: Rocuronium* 10 MG/ML VIAL ONE (12:34)
[2019-11-23] MEDS ORDERED: oxyCODONE TAB* 5 MG TAB PO PRN (13:37)
[2019-11-23] MEDS ORDERED: Nalbuphine* 10 MG/ML 1 ML VIAL IV PRN (13:37)
[2019-11-23] MEDS ORDERED: diPHENhydraMINE IV* 50 MG/ML 1 ml VIAL (BENADRYL) IV PRN (13:37)
[2019-11-23] MEDS ORDERED: PROCHLORPERAZINE INJ 5 MG/ML 2 ML VIAL IV PRN (13:37)
[2019-11-23] MEDS ORDERED: Naloxone* 0.4 MG/ML 1 ML VIAL IV PRN (13:37)
[2019-11-23] MEDS ORDERED: Ondansetron INJ* 2 MG/ML VIAL ONE (13:39)
[2019-11-23] MEDS ORDERED: Glycopyrrolate IV* 0.2 MG/ML 1 ML VIAL ONE (13:39)
[2019-11-23] MEDS ORDERED: Neostigmine Methylsulfate* 3 MG/3 ML SYRINGE ONE (13:40)
[2019-11-23] MEDS ORDERED: Indomethacin SUPP(NF) 50 MG SUP PR ONE (15:00)
--- NOTE | 2019-11-23 16:36 | PRO ---
DATE: 11/23/19 REFERRING PRACTITIONER: Maira Kuhn NP, [place], [place]* PROCEDURE: ERCP with sphincterotomy and balloon passage through common ducts, retrieval of grit and bile. INDICATION: This 49-year-old woman, came in with increasing pain over several days and had abnormal LFTs. Pain was consistent with prior biliary colic and she had had an ERCP and removal of common bile duct stones a month ago. Balloon occlusion cholangiogram was felt to be negative. She has been stable with n.p.o. status, receiving Toradol. Discussion about possible findings and outcomes was held assisted by diagram and all questions answered. Possibility of new stones from the gallbladder, a stone escaping into the intrahepatic ducts or being present in the common ducts was reviewed. All questions were answered. She was brought to the surgical suite. With no obstruction, no antibiotics were given. ENDOSCOPIST: Dr. Palma. ANESTHESIA: Dr. Chand. FINDINGS: She is a mildly overweight middle-aged woman in no overt distress. She was positioned in the semi-prone position and a warmer placed. She was receiving anesthesia after endotracheal intubation. ERCP: Esophagus - 20% views were normal. Intubation was easy. Stomach - generally normal mucosa with two third views normal. The pylorus was wide open. Duodenum - normal bulb and second or third portions. The papilla was in a proximal location and at times, the scope would retract into the stomach. Papilla - low profile without obvious draining bile initially. An obvious sphincterotomy was not seen. Cannulation required the usual techniques and common bile duct was not obtained easily. Cannulation slightly to the right and toward the 1 o'clock orientation was obtained and a free cannulation achieved into the common duct. A guidewire was seated deeply into the liver and favored the left side. Dye injection did not see a stone clearly. With the narrow ductal access at the level of the papilla, it was decided to do sphincterotomy in the usual orientation. The sphincterotome was positioned and sphincterotomy done. No bleeding was encountered. There was some increased flow of bile. An exchange was made for a balloon 9 to 12 mm. It was inflated high in the common duct area and brought down and came through the sphincterotomy snugly. It popped out and it was not possible to be sure of what may have come through with the initial gush of bile. Another balloon sweep was made. No clearcut stone was seen. The cystic duct was not clearly opacified. Position was lost and the scope was repositioned in the third portion of the duodenum and the common duct reacquired with the guidewire and a third passage of the balloon done. Results were the same. Dye drained readily. At no point was the pancreatic duct seen or any guidewire threaded in an uncertain direction. The common duct appeared smooth and the intrahepatic or common hepatic duct area appeared normal. With final drainage of dye, the procedure was terminated. IMPRESSION: 1. Low profile papilla. 2. Biliary colic and common duct stone interpreted on ultrasound - sphincterotomy done and drainage confirmed. Whether the stone visualized yesterday had passed, escaped in a gush of bile or might be in a low insertion cystic duct cannot be determined and an MRCP will be ordered. [id number]/[facility] #: [id number] MTDD
--- NOTE | 2019-11-23 17:46 | PN ---
Subjective Date of Service: 11/23/19 Interval History: Pt is alert and oriented x 3. Very tearful upon return from [facility] pt believes that she will not be having cholecystectomy after all. Pt reports that she does not want to go through this again after experiencing it one month ago. Pt reports that the toradol is beginning to work however she continues to have pain in RUQ. Family History: Unchanged from Admission Social History: Unchanged from Admission Past Medical History: Unchanged from Admission Objective Active Medications: Sodium Chloride (Ns 0.9% 1000 Ml) 1,000 mls @ 100 mls/hr IV PER [facility] Last Admin: 11/23/19 02:46 Dose: 100 mls/hr Lactated Ringer's (Lactated Ringers 1000 Ml Bag*) 1,000 mls @ 125 mls/hr IV PER [facility] Ketorolac Tromethamine (Toradol Inj*) 15 mg IV PUSH Q6H PRN PRN Reason: PAIN - MILD Last Admin: 11/23/19 17:24 Dose: 15 mg Ondansetron HCl (Zofran Inj*) 4 mg IV Q6H PRN PRN Reason: NAUSEA/VOMITING Ondansetron HCl (Zofran Odt Tab*) 4 mg PO ONCE ONE Stop: 11/24/19 06:01 Vital Signs - 8 hr 11/23/19 11/23/19 11/23/19 14:45 14:50 14:55 Temperature 97.7 F Pulse Rate 89 76 59 Respiratory 11 21 14 Rate Blood Pressure 134/76 119/80 136/87 (mmHg) O2 Sat by Pulse 98 95 97 Oximetry 11/23/19 11/23/19 11/23/19 15:00 15:15 15:30 Temperature Pulse Rate 52 55 51 Respiratory 19 Rate Blood Pressure 118/77 119/77 124/79 (mmHg) O2 Sat by Pulse 96 99 99 Oximetry 11/23/19 11/23/19 11/23/19 15:45 16:45 17:35 Temperature 98.6 F 98.3 F 97.8 F Pulse Rate 63 60 Respiratory 16 17 18 Rate Blood Pressure 139/70 126/83 (mmHg) O2 Sat by Pulse 100 100 Oximetry Oxygen Devices in Use Now: None Appearance: Middleaged woman sitting up in bed tearful but not crying. Does not appear to be in any distress. Eyes: No Scleral Icterus, PERRLA Ears/Nose/Mouth/Throat: NL Teeth, Lips, Gums, Clear Oropharnyx, Mucous Membranes Moist Neck: NL Appearance and Movements; NL JVP, Trachea Midline Respiratory: Symmetrical Chest Expansion and Respiratory Effort, Clear to Auscultation Cardiovascular: NL Sounds; No Murmurs; No JVD, RRR, No Edema Abdominal: NL Sounds; No Tenderness; No Distention, No Hepatosplenomegaly Lymphatic: No Cervical Adenopathy Skin: No Rash or Ulcers, No Nodules or Sclerosis Neurological: Alert and Oriented x 3, NL Sensation, NL Muscle Strength and Tone Result Diagrams: 11/23/19 07:10 11/23/19 07:10 Assess/Plan/Problems-Billing Assessment: 49 yof female with hx significant for cholelithieasis with recent ERCP, and R lung nodule arrives at the ED with C/O RUQ pain - Patient Problems (1) Abdominal pain Current Visit: Yes Comment: -Pt continues to C/O RUQ pain, significant hx of Cholelithiasis -ERCP performed to day, Dr. Palma unable to observe or remove any stones from CBD -MRCP shows several cholelithiasis but no calculus in CBD -Dr. Palma reports that patient is cleared for cholecystectomy 11/23 -NPO after midnight (2) Elevated liver enzymes Current Visit: Yes Comment: -Likely due to blocked common billiary duct however CBD was open during ERCP and MRCP stone was likely ejected. Will assess for resolving LFT's 11/24/19 (3) DVT prophylaxis Current Visit: Yes Comment: -SCD's -Ambulatory (4) Full code status Current Visit: Yes Status and Disposition: Stable likely cholecystectomy 11/24/19
[2019-11-23] MEDS ORDERED: NS 0.9% 1000 ML** 1,000 ML IV SCH (18:30)
[2019-11-24] MEDS ORDERED: oxyCODONE TAB* 5 MG TAB PO PRN (05:58)
[2019-11-24] MEDS ORDERED: fentaNYL* 50 MCG/ML 2 ML VIAL (100 MCG VIAL) IV PRN (05:58)
[2019-11-24] MEDS ORDERED: DiMENhydriNATE IV* 50 MG/ML VIAL IV PUSH PRN (05:58)
[2019-11-24] MEDS ORDERED: PROCHLORPERAZINE INJ 5 MG/ML 2 ML VIAL IV PRN (05:58)
[2019-11-24] MEDS ORDERED: HYDROmorphone INJ1* 1 MG/ML SYRINGE IV PRN (05:58)
[2019-11-24] MEDS ORDERED: Scopolamine 1.5 mg* PATCH TRANSDERM PRN (05:58)
[2019-11-24] MEDS ORDERED: Naloxone* 0.4 MG/ML 1 ML VIAL IV PRN (05:58)
[2019-11-24] MEDS ORDERED: Lactated Ringers 1000 ML Bag* 1,000 ML IV SCH (06:00)
[2019-11-24] MEDS ORDERED: Famotidine IV* 10 MG/ML 2 ML (20 mg) IV ONE (06:00)
[2019-11-24] MEDS ORDERED: Dexamethasone TAB* 4 MG PO ONE (06:00)
[2019-11-24] MEDS ORDERED: Ondansetron ODT TAB* 4 MG PO ONE (06:00)
[2019-11-24 06:16] LABS: Albumin 3.3 g/dL (3.2-5.2); Albumin/Globulin Ratio 1.4 (1-3); BUN/Creatinine Ratio 16.7 (8-20); Calcium 8.2 mg/dL (8.6-10.3); EGFR African American 115.2 (>60); EGFR Non-African American 95.2 (>60); Globulin 2.4 g/dL (2-4); Potassium 3.9 mmol/L (3.5-5.0); Total Bilirubin 1.7 mg/dL (0.2-1.0); Total Protein 5.7 g/dL (6.4-8.9)
[2019-11-24] MEDS: Ketorolac INJ* 15 MG/ML 1 ML VIAL IV PUSH PRN (09:41)
[2019-11-24] MEDS ORDERED: Famotidine IV* 10 MG/ML 2 ML (20 mg) ONE (11:17)
[2019-11-24] MEDS ORDERED: Dexamethasone TAB* 4 MG ONE (11:17)
[2019-11-24] MEDS ORDERED: Midazolam* 1 MG/ML 5 ML VIAL (5 MG) ONE (11:41)
[2019-11-24] MEDS ORDERED: KETAMINE HCL* 50 MG/ML 10 ML VIAL ONE (11:41)
[2019-11-24] MEDS ORDERED: fentaNYL* 50 MCG/ML 2 ML VIAL (100 MCG VIAL) ONE ×2 (11:41→12:44)
[2019-11-24] MEDS ORDERED: Bupivacaine 0.5% W/EPI SDV* 30 ML VIAL ONE (11:47)
[2019-11-24] MEDS ORDERED: ceFOXitin 2 GM IVPREMIX* 0 GM/0 ML BAG ONE (12:04)
[2019-11-24] MEDS ORDERED: Ketorolac INJ* 30 MG/ML 1 ML VIAL ONE (12:49)
[2019-11-24] MEDS ORDERED: DiMENhydriNATE IV* 50 MG/ML VIAL ONE (12:49)
[2019-11-24] MEDS ORDERED: PROCHLORPERAZINE INJ 5 MG/ML 2 ML VIAL ONE (12:49)
[2019-11-24] MEDS ORDERED: Propofol* 10 MG/ML 20 ML BTL ONE (12:49)
--- NOTE | 2019-11-24 13:23 | BRIEFOPN ---
Brief Operative/Procedure Note - Operation Details Pre-Op Diagnosis: cholelithiasis; choledocholithiasis Post-Op Diagnosis: same (ERCP and MRCP negative for choledocholithiasis) Procedures: Laparoscopic cholecystectomy Surgeon(s)/Proceduralists: Bobo. Assist: Aurelia CRENSHAW Anesthesia: GET. Fluids: 1200 ml LR Estimated Blood Loss: < 20 ml Findings: as above Specimen(s)/Culture(s) Description: gallbladder Complications: none
[2019-11-24] MEDS ORDERED: HYDROcodone/ACETAMIN 5-325 MG* 1 TAB PO PRN (13:52)
[2019-11-24] MEDS ORDERED: Acetaminophen TAB* 325 MG PO PRN (13:52)
[2019-11-24] MEDS ORDERED: HYDROcodone/ACETAMIN 5-325 MG* 1 TAB ONE (13:57)
--- NOTE | 2019-11-24 14:30 | DS ---
CC: Dr. Conner Palma; Maira Kuhn NP, [facility]* DISCHARGE SUMMARY: DATE OF ADMISSION: 11/22/19 DATE OF DISCHARGE: 11/24/19 ATTENDING SURGEON: Dr. Indra Broussard* (dictated by DEN Serrano). HOSPITAL COURSE: Please refer to admission history and physical as well as surgical consult and GI consult in addition to operative note details. The patient was admitted on 11/22/19 with upper abdominal pain with associated nausea and vomiting. She was found by initial ultrasound to have what appeared to be a stone in the distal common bile duct. She had undergone previous ERCP with sphincterotomy at [facility] about 1 month ago. She underwent repeat ERCP with Dr. Conner Palma on 11/23/19. Findings did not reveal any evidence of common duct stone and subsequent MRCP confirmed the same. She was taken to the operating room on 11/24/19 at which time she underwent a laparoscopic cholecystectomy with Dr. Broussard. Surgery itself was uneventful. Pending her recovery, she was deemed able to be discharged to home from the PACU. Prescription for [place] 5/325 was sent to the hospital outpatient pharmacy. She has a followup for a telemedicine visit with our office on . Discharge instructions have been reviewed preoperatively and were also given to her in written form postoperatively. She is discharged to home in good condition. DEN SERRANO [id number]/[facility] #: [id number] [facility]
[2019-11-24 15:31] VITALS: BP 143/88
--- NOTE | 2019-11-24 16:19 | OP ---
CC: Maira Kuhn NP, [place], [place]*; Conner Palma MD DATE OF OPERATION: 11/24/2019 - inpatient, U [id number] DATE OF : 1970. SURGEON: Dr. Indra Broussard. STUDENT SERVICES COORDINATOR: DEN Serrano. ANESTHESIOLOGIST: Dr. Hilton Fellow. ANESTHESIA: General endotracheal. PRE-OP DIAGNOSIS: Symptomatic cholelithiasis and CBD stone. POST-OP DIAGNOSIS: Symptomatic cholelithiasis and CBD stone. OPERATIVE PROCEDURE: Laparoscopic cholecystectomy. ESTIMATED BLOOD LOSS: Less than 10 ml. IV FLUIDS: Crystalloid. SPECIMEN: Gallbladder. DRAIN: None. COMPLICATIONS: None. COUNTS: Instrument, needle, and sponge counts correct. DESCRIPTION OF PROCEDURE: The patient was brought to the operating room and placed on the table supine. Sequential compression devices were placed on both lower extremities and general anesthesia was administered. The patient was positioned and padded appropriately and prepped and draped in the usual sterile fashion. She received appropriate intravenous antibiotics. Local anesthetic was infiltrated into the skin and soft tissue prior to making each incision. Entry into the abdomen was through a transumbilical vertical incision using an open technique. After accessing the peritoneal cavity, a 12- mm trocar was placed and carbon dioxide was insufflated to a pressure of 15 mmHg. Under direct visualization, 5-mm trocars were placed in the subxiphoid position and two in the right upper quadrant. The gallbladder was identified. It appeared to be uninflamed and nondistended. It was grasp at the fundus which was retracted cephalad. The peritoneum investing the gallbladder was dissected free using a combination of sharp blunt dissection and cautery. The gallbladder was noted to be long and thin with a long thin cystic duct. The dissection proceed in both the medial and lateral aspects of the gallbladder in order to free it from the attachments and after identifying the cystic duct and the cystic artery, both anterior and posterior branches, the structures were doubly clipped and divided. The gallbladder was freed from attachments to the liver bed, staying in an avascular plane. The gallbladder was retrieved using a bag through the umbical port site. Hemostasis was assured. Carbon dioxide was released and reports were removed. Umbilicus was closed with 0 Vicryl in [id number] fashion to approximate the fascia. The skin incisions were closed with 4-0 Monocryl in subcuticular fashion. Steri-Strips were applied. The patient tolerated this procedure well. She was extubated uneventfully and transferred to the recovery room in stable condition. [id number]/[facility] #: [id number] OSBALDO
[2019-11-27] MEDS ORDERED: Scopolamine PATCH Remove* 1 NOTE MISC PATCH OFF ONE (05:59)
== END 2019-11-24 15:15 | disposition home or self-care (01) | DRG 263 ==
LOC: ED 10:51 → SSU 14:10 → OBSVTOIN 11-23 12:00
PROVIDERS: ADMIT Hospitalist; ATTEND Surgery
PROC: 0F798ZZ Dilation of Common Bile Duct, Via Natural or Artificial Opening Endoscopic (ICD-10-PCS; 2019-11-23)
PROC: 0FT44ZZ Resection of Gallbladder, Percutaneous Endoscopic Approach (ICD-10-PCS; principal; 2019-11-24 12:00)
DX: K80.70 Calculus of gallbladder and bile duct without cholecystitis without obstruction (principal); R94.5 Abnormal results of liver function studies; R91.1 Solitary pulmonary nodule; Z85.828 Personal history of other malignant neoplasm of skin; Z80.0 Family history of malignant neoplasm of digestive organs
CPT/HCPCS: 36415; 74181; 74328; 76376; 76705; 80053; 81003; 83690; 84702; 85025; 85610; 88304; 96361; 96374; 96375; 99284; A9270-GY; C1769; G0378; J0330; J0694; J0780; J1100; J1240; J1885; J2250; J2405; J2704; J2710; J3010; J8540